=== PATIENT | male | born 1950 | race Hispanic/Latino ===

== ENCOUNTER 2018-07-07 07:41 | Day surgery (SDC) | payer BC ==
[2018-07-07 08:46] LABS: Basophils # (Auto) 0.1 K/mm3 (0.0-0.1); Basophils % (Auto) 0.8 % (0.0-1.8); Eosinophils # (Auto) 0.1 K/mm3 (0.0-0.4); Eosinophils % (Auto) 1.8 % (0.0-4.3); Hematocrit 43.9 % (35.5-45.6); Hemoglobin 15.3 gm/dl (11.8-15.2); Lymphocytes # (Auto) 1.5 K/mm3 (1.2-5.4); Mean Corpuscular HGB Conc 35 % (32-34); Mean Corpuscular Volume 93 fl (84-94); Monocytes # (Auto) 0.7 K/mm3 (0.0-0.8); Monocytes % (Auto) 9.4 % (0.0-7.3); Platelet Count 261 K/mm3 (140-440); Red Blood Count 4.71 M/mm3 (3.65-5.03)
[2018-07-07] MEDS ORDERED: NACL 0.9% 1000 ML 1,000 ML IV SCH (09:00)
--- NOTE | 2018-07-07 09:00 | Anesthesia Day of Surgery ---
Anesthesia Day of Surgery - Day of Surgery Patient Examined: Yes Patient H&P Reviewed: Yes Patient is NPO: Yes Beta Blockers: Yes
--- NOTE | 2018-07-07 09:00 | Anesthesia Consultation ---
Anesthesia Consult and Med Hx Date of service: 07/07/18 - Airway Anesthetic Teeth Evaluation: Good ROM Head & Neck: Adequate Mental/Hyoid Distance: Adequate Mallampati Class: Class III Intubation Access Assessment: Probably Good - Pulmonary Exam CTA: Yes - Cardiac Exam Cardiac Exam: No Murmur - Pre-Operative Health Status ASA Pre-Surgery Classification: ASA3 Proposed Anesthetic Plan: MAC (1 pack per day ) - Pulmonary Hx Smoking: Yes - Cardiovascular System Hx Hypertension: Yes Hx Peripheral Vascular Disease: Yes - Central Nervous System Hx Psychiatric Problems: No - Other Systems Hx Alcohol Use: Yes Hx Cancer: No
[2018-07-07 09:08] LABS: INR 1.19 (0.87-1.13)
[2018-07-07 09:09] LABS: Partial Thromboplastin Time 31.1 Sec. (24.2-36.6)
[2018-07-07] MEDS ORDERED: HURRICAINE ONE 20% TOPICAL SPRAY MM (09:18)
[2018-07-07] MEDS ORDERED: SUBLIMAZE ONE (09:24)
[2018-07-07] MEDS ORDERED: DIPRIVAN 10 MG/ML IV ONE ×2 (09:24→09:28)
[2018-07-07] MEDS ORDERED: VERSED ONE (09:24)
[2018-07-07] MEDS ORDERED: HURRICAINE ONE 20% TOPICAL SPRAY MM NR (09:30)
[2018-07-07 09:51] LABS: BUN/Creatinine Ratio 17; Blood Urea Nitrogen 19 mg/dL (9-20); Calcium 8.9 mg/dL (8.4-10.2); Hemolysis Index 11
--- NOTE | 2018-07-07 11:30 | Short Stay Summary ---
Short Stay Documentation Date of service: 07/07/18 - History H&P: obtained from office - Allergies and Medications Current Medications: Allergies No Known Allergies Allergy (Unverified 07/07/18 07:42) Home Medications Medication Instructions Recorded Confirmed Last Taken Type Apixaban [Eliquis] 5 mg PO BID 07/07/18 07/07/18 07/07/18 06:15 History 5mg Aspirin EC [Aspirin Enteric Coated 81 mg PO DAILY 07/07/18 07/07/18 07/07/18 06:15 History TAB] 81mg Atorvastatin [Lipitor] 40 mg PO DAILY 07/07/18 07/07/18 07/07/18 06:15 History 40mg Cetirizine HCl [ZyrTEC 10mg cap] 10 mg PO DAILY 07/07/18 07/07/18 07/07/18 06:15 History 10mg Digoxin [Lanoxin] 0.125 mg PO DAILY 07/07/18 07/07/18 07/07/18 06:15 History 0.125mg Metoprolol Xl [Metoprolol 25 mg PO DAILY 07/07/18 07/07/18 07/07/18 06:15 History SUCCINATE ER TAB] Potassium Gluconate 1 tab PO DAILY 07/07/18 07/07/18 07/07/18 06:15 History Vit A and D3 in Cod Liver Oil [Cod 1 tab PO DAILY 07/07/18 07/07/18 07/07/18 History Liver Oil Softgel] 1 tab Vit C/Ascorb Sod/Multivit-Min 1 tab PO DAILY 07/07/18 07/07/18 07/07/18 06:15 History [Emergen-C 500 mg Chewable Tab] Active Medications Sodium Chloride (Nacl 0.9% 1000 Ml) 1,000 mls @ 42 mls/hr IV DIRECT PRAVEEN Last Admin: 07/07/18 09:19 Dose: 42 mls/hr Documented by: - Brief post op/procedure progress note Date of procedure: 07/07/18 Pre-op diagnosis: afib Post-op diagnosis: other (nsr) Procedure: see report Anesthesia: MAC Estimated blood loss: none Pathology: none - Disposition Condition at discharge: Good Disposition: DC-01 TO HOME OR SELFCARE - Discharge Diagnoses (1) Atrial fibrillation Status: Chronic Qualifiers: Atrial fibrillation type: persistent Qualified Code(s): I48.1 - Persistent atrial fibrillation (2) Hyperlipemia, mixed Status: Chronic (3) PAD (peripheral artery disease) Status: Chronic (4) Smoker unmotivated to quit Status: Chronic Short Stay Discharge Plan Activity: advance as tolerated Follow up with: MEHUL DE GUZMAN MD [Primary Care Provider] - 7 Days
[2018-07-07 11:45] VITALS: BP 116/51
== END 2018-07-07 12:15 | disposition home or self-care (01) ==
LOC: CATHLABREC 07:41 → EDSTATUS 09:30 → CATHLABREC 12:15
PROVIDERS: ATTEND Internal Medicine
DX: I34.0 Nonrheumatic mitral (valve) insufficiency (principal); I48.2 Chronic atrial fibrillation; E78.2 Mixed hyperlipidemia; E78.00 Pure hypercholesterolemia, unspecified; I10 Essential (primary) hypertension; I73.9 Peripheral vascular disease, unspecified; F17.200 Nicotine dependence, unspecified, uncomplicated; Z79.01 Long term (current) use of anticoagulants; Z79.82 Long term (current) use of aspirin; Z79.899 Other long term (current) drug therapy; Z98.49 Cataract extraction status, unspecified eye; Z72.89 Other problems related to lifestyle; Z98.890 Other specified postprocedural states
CPT/HCPCS: 36415; 80048; 85025; 85610; 85730; 93005; 93010; 93312; 93320; 93325; J2250; J2704; J3010; J7030